=== PATIENT | female | born 1980 | race Hispanic/Latino ===

== ENCOUNTER 2018-09-12 03:12 | Inpatient (IN) | payer OTHER ==
--- NOTE | 2018-09-12 03:18 | C.PDOC ---
History Of Present Illness Patient seen and medically cleared at [facility] for depression and hearing voices, accepted in transfer for psychiatric admission under Dr. Flores. Patient has no complaints at this time, pleasant, cooperative. Denies SI or HI. Time Seen by Provider: 09/12/18 03:13 History Per: Other ([facility]) History/Exam Limitations: no limitations Onset/Duration Of Symptoms: Hrs Current Symptoms Are (Timing): Still Present Suicide/Self Injury Attempted (Context): None Modifying Factor(s): None Severity: None Pain Scale Rating Of: 0 Recent travel outside of the [place]: No Past Medical History Reviewed: Historical Data, Nursing Documentation, Vital Signs Family History: States: No Known Family Hx Review Of Systems Constitutional: Negative for: Fever, Chills Cardiovascular: Negative for: Chest Pain, Palpitations Respiratory: Negative for: Cough, Shortness of Breath Gastrointestinal: Negative for: Nausea, Vomiting Psych: Negative for: Suicidal ideation, Other (Homicidal ideation) Physical Exam - Physical Exam Appears: Non-toxic Skin: Warm, Dry Head: Normacephalic Oral Mucosa: Moist Chest: Symmetrical, No Tenderness Cardiovascular: Rhythm Regular Respiratory: No Rales, No Rhonchi, No Wheezing Gastrointestinal/Abdominal: Soft, No Tenderness Neurological/Psych: Oriented x3 Disposition Discussed With Dr.: Elisa Flores Comment: accepted the pt onhis service and took over the care at 3:17 AM Counseled Patient/Family Regarding: Studies Performed, Diagnosis - Disposition Disposition: HOSPITALIZED Disposition Time: 03:17 Condition: FAIR - POA Present On Arrival: None - Clinical Impression Clinical Impression: Schizoaffective disorder - Scribe Statement The provider has reviewed the documentation as recorded by the Scribe Ash Rodriguez All medical record entries made by the Scribe were at my direction and personally dictated by me. I have reviewed the chart and agree that the record accurately reflects my personal performance of the history, physical exam, medical decision making, and the department course for this patient. I have also personally directed, reviewed, and agree with the discharge instructions and disposition. Decision To Admit - Pt Status Changed To: Hospital Disposition Of: Inpatient - Admit Certification Admit to Inpatient:: After my assessment, the patient will require hospitalization for at least two midnights. This is because of the severity of symptoms shown, intensity of services needed, and/or the medical risk in this patient being treated as an outpatient. - InPatient: Physician Admission Certification: I certify that this patient requires 2 or more midnights of care for the following reason:: After my assessment, the patient will require hospitalization for at least two midnights. This is because of the severity of symptoms shown, intensity of services needed, and/or the medical risk in this patient being treated as an outpatient. - . Bed Request Type: Psychiatry Admitting Physician: Elisa Flores Patient Diagnosis: Schizoaffective disorder
--- NOTE | 2018-09-12 05:39 | PCM.BM ---
Treatment Plan Problems - Problems identified on initial assessmt Command/Auditory Hallucinations Date Initiated: 09/12/18 Time Initiated: 05:00 Assessment reference: NA Status: Active Comment: Auditory hallucinations stating, "Kill yourself." Suicidal Ideation Date Initiated: 09/12/18 Time Initiated: 05:00 Assessment reference: NA Status: Monitor Comment: Suicidal Ideation with plan to drink cleaning fluid Treatment assets and liabiliti Patient Assests: cooperative, ADL independent, negotiates basic needs Patient Liabilities: poor support system, dietary restrictions (Diabetic), medical problems (HTN, Hypothyroidism, DM, GERD, Asthma) - Milieu Protocol Maintain good personal hygiene: daily Encourage regular showers, daily Remind patient to perform daily oral care, every shift Assist patient to perform ADL's Conduct patient checks and document Observation sheet: Q15 minutes Maintain personal safety: every shift Educate patient to report safety concerns to staff, every shift Monitor environment for contraband/sharps Medication safety: Monitor for expected outcome, potential side effects: every shift, Assess barriers to learning: every shift, Assess readiness for medication education: every shift
[2018-09-12] MEDS: Levothyroxine 25 MCG TAB PO SCH (05:55)
[2018-09-12] MEDS ORDERED: Albuterol HFA 90 mcg/actuation (8 g) IH PRN (09:50)
--- NOTE | 2018-09-12 09:50 | PCM.PSYCH ---
Initial Psychiatric Evaluation - Initial Psychiatric Evaluation Type of Admission: Voluntary Legal Status: Capacity Chief Complaint (in patient's own words): I was hearing voices to kill myself. History of Present Illness and Precipitating Events: Patient is a 37 years old female, who is currently unemployed and lives at [facility], was transferred to from [facility], because of depressed mood, and suicidal ideation with a plan to drink cleaning fluid and auditory hallucinations telling patient to kill herself. Patient reports a long history of schizophrenia. She has history of multiple inpatient psychiatric hospitalizations. She has been to multiple group homes. Currently she is staying at the [facility]. 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 Patient appears superficially cooperative but guarded about the details. She remained a poor historian. She appears to have some learning disorder. Patient reports that she is feeling increasingly depressed since past few days. Yesterday she started hearing voices to kill herself, so she came to the hospital to get help. Patient admits to a suicide attempt by drinking cleaning fluid in May 2018. She reports depressed mood, feelings of hopelessness and helplessness and worthlessness. He also reports poor sleep and poor appetite. She reports paranoia and sometimes visual hallucinations. However she denies any irritability, agitation or any recent thoughts. She reports some anxiety but denies any panic attacks. Urine toxicology was negative. PMH: HTN, asthma, GERD, Hypothyroidism, DM, and left knee replacement surgery Current medications: Metformin 1000mg, Clozapine 100mg, Clozapine 400mg, Albuterol Inh, Aspirin 81mg, Symbicort Inh, Colace 100mg, Motrin 600mg, Synthroid 25mcg, Victoza 1.2mg, Zestril 2.5mg, Mometasone Inh, Nicotine 21mg patch, Protonix 40mg, Inderal 10mg, Seroquel 25mg, Seroquel 100mg, Zocor 10mg, Prograf 0.5mg, Trazodone 50mg. Current Medications: Active Medications Generic Name Dose Route Start Last Admin Trade Name Freq PRN Reason Stop Dose Admin Levothyroxine Sodium 25 mcg 09/12/18 06:00 09/12/18 05:55 Synthroid PO 25 mcg DAILY@0600 BALTAZAR Administration Pneumococcal Polyvalent Vaccine 0.5 ml 09/15/18 10:00 Pneumovax 23 Vaccine IM 09/15/18 10:01 .ONCE ONE Past Psychiatric History - Past Psychiatric History Previous Treatment History: Inpatient Pertinent Medical Hx (Current Medical&Sleep Prob, Allergies): Allergies Allergy/AdvReac Type Severity Reaction Status Date / Time clindamycin Allergy Verified 09/12/18 03:22 divalproex sodium Allergy Verified 09/12/18 03:22 [From Depakote] fluoxetine [From Prozac] Allergy Verified 09/12/18 03:22 Penicillins Allergy Verified 09/12/18 03:22 Albuterol Sulfate [Proair Hfa] 0.09 mg IH Q4H PRN 09/12/18 Ammonium Lactate 12% [Lac-Hydrin] 1 appl TP BID 09/12/18 Aspirin [Ecotrin] 81 mg PO DAILY 09/12/18 Budesonide/Formoterol Fumarate [Symbicort] 1 aer IH Q12H 09/12/18 Clozapine 400 mg PO HS 09/12/18 Clozapine [Fazaclo] 100 mg PO BID 09/12/18 Docusate Sodium 100 mg PO BID PRN 09/12/18 Ketoconazole 2% Cr [Nizoral] 1 applic TOP DAILY 09/12/18 Levothyroxine [Synthroid] 25 mcg PO DAILY 09/12/18 Liraglutide [Victoza] 1.2 mg SC DAILY 09/12/18 Lisinopril 2.5 mg PO DAILY 09/12/18 Loratadine [Claritin] 10 mg PO PRN PRN 09/12/18 MetFORMIN [glucOPHAGE] 1,000 mg PO BID 09/12/18 Mometasone/Formoterol [Dulera] 1 colleen IH DAILY 09/12/18 Nicotine 21 mg/24 hr [Nicoderm CQ] 1 each TD DAILY 09/12/18 Pantoprazole [Protonix] 40 mg PO DAILY 09/12/18 Propranolol [Propranolol HCl] 10 mg PO DAILY 09/12/18 Quetiapine Fumarate [Seroquel] 25 mg PO BID 09/12/18 Quetiapine Fumarate [Seroquel] 100 mg PO HS 09/12/18 Simvastatin 10 mg PO HS 09/12/18 Tacrolimus 0.5 mg PO BID 09/12/18 traZODone [trazODONE HYDROCHLORIDE] 50 mg PO DAILY 05/16/19 Review of Systems - Review of Systems All systems: reviewed and no additional remarkable complaints except - Psychiatric Psychiatric: Anxiety, Auditory Hallucinations, Irritability, Suicidal Ideation Mental Status Examination - Personal Presentation Personal Presentation: Looks stated age - Affect Affect: Constricted - Reliability in Providing Information Reliability in Providing Information: Fair - Speech Speech: Disorganized - Mood Mood: Anxious - Formal Thought Process Formal Thought Process: Hallucinations, Delusions, Paranoia, Loosening of associations - Hallucinations/Delusions Hallucinations: Auditory - Obsessions/Compulsions Obsessions: No Compulsions: No - Cognitive Functions Orientation: Person, Place, Situation, Time Sensorium: Alert Attention/Concentration: Attentive Abstract Thinking: [place] Estimate of Intelligence: Below average Judgement: Imparied, as evidence by: Poor judgement, Imparied, as evidence by: Lack of insight into illness - Risk Risk: Suicidal, Diminished functioning - Limitations Limitations: Living alone DSM 5 DX - DSM 5 DSM 5 Diagnosis: Schizoaffective disorder depressive type - Recommended/Plan of Treatment Treatment Recommendations and Plan of Treatment: Schizoaffective disorder depressive type HTN, Asthma, GERD, Hypothyroidism, DM, CBT Supportive therapy Group therapy individual therapy Trazodone for insomnia Hydroxyzine for anxiety Discontinue Seroquel Continue clozapine for psychosis Start Haldol for psychosis Continue medications for hypertension, asthma, hypothyroidism Continue medications for diabetes and continue with regular blood sugar checks - Smoking Cessation Smoking Cessation Initiated: No
[2018-09-12] MEDS ORDERED: ARO IH SCH (10:00)
[2018-09-12] MEDS ORDERED: Levothyroxine 25 MCG TAB PO SCH (10:00)
[2018-09-12] MEDS ORDERED: LIRAGLUTIDE 1.2 MG SC SCH (10:00)
[2018-09-12] MEDS ORDERED: Arformoterol 15 mcg/2 ml Inh Sol IH SCH (10:00)
[2018-09-12] MEDS ORDERED: MOMETASONE IH SCH (10:00)
[2018-09-12] MEDS ORDERED: FORMOTEROL IH SCH (10:00)
[2018-09-12] MEDS: Pantoprazole 40 mg EC Tab PO SCH (10:48)
[2018-09-12] MEDS ORDERED: Albuterol 0.083% Inhal Sol (2.5 mg/3 mL) UD IH PRN (11:30)
[2018-09-12] MEDS: (Novolin R) Insulin Human Regular 100 units/ml vial SC SCH ×3 (11:38→21:54)
[2018-09-12] MEDS: Arformoterol 15 mcg/2 ml Inh Sol IH SCH ×2 (11:51→20:34)
[2018-09-12 17:30] LABS: BASO % 0.5 % (0.0-2.0); EOS % 0.3 % (0.0-4.0); HEMOGLOBIN 12.2 g/dL (11.0-16.0); LYMPH # 2.5 K/uL (1.0-4.3); LYMPH % 38.9 % (20.0-40.0); MEAN CELL VOLUME 79.2 fL (81.0-99.0); MEAN CORPUSCULAR HEMOGLOBIN 26.2 pg (27.0-31.0); MEAN CORPUSCULAR HGB CONC 33.1 g/dL (33.0-37.0); MEAN PLATELET VOLUME 7.9 fL (7.2-11.7); MONO # 0.3 K/uL (0.0-0.8); MONO % 4.8 % (0.0-10.0); NEUT # 3.5 K/uL (1.8-7.0); NEUT % 55.5 % (50.0-75.0); NRBC % 0.1 % (0.0-2.0); RBC 4.65 Mil/uL (3.80-5.20); RED CELL DISTRIBUTION WIDTH 16.1 % (11.5-14.5); WHITE BLOOD COUNT 6.3 K/uL (4.8-10.8)
[2018-09-12] MEDS: Budesonide 0.25 mg/2 ml Inhal Susp UD INH SCH (20:34)
[2018-09-12] MEDS: Rosuvastatin Calcium 2.5 mg Tab PO SCH (21:57)
[2018-09-13] MEDS: Levothyroxine 25 MCG TAB PO SCH (06:20)
[2018-09-13] MEDS: (Novolin R) Insulin Human Regular 100 units/ml vial SC SCH ×4 (07:56→21:21)
[2018-09-13] MEDS: Budesonide 0.25 mg/2 ml Inhal Susp UD INH SCH ×2 (09:06→19:51)
[2018-09-13] MEDS: Arformoterol 15 mcg/2 ml Inh Sol IH SCH ×2 (09:07→20:09)
[2018-09-13] MEDS: Pantoprazole 40 mg EC Tab PO SCH (09:51)
[2018-09-13] MEDS: Rosuvastatin Calcium 2.5 mg Tab PO SCH (21:18)
[2018-09-14] MEDS: Levothyroxine 25 MCG TAB PO SCH (05:47)
[2018-09-14] MEDS: (Novolin R) Insulin Human Regular 100 units/ml vial SC SCH ×4 (07:51→21:52)
[2018-09-14] MEDS: Arformoterol 15 mcg/2 ml Inh Sol IH SCH ×2 (08:30→20:23)
[2018-09-14] MEDS: Budesonide 0.25 mg/2 ml Inhal Susp UD INH SCH ×2 (08:34→20:23)
[2018-09-14] MEDS: Pantoprazole 40 mg EC Tab PO SCH (09:43)
--- NOTE | 2018-09-14 12:23 | PCM.PYCHPN ---
Psychiatric Progress Note - Psychiatric Progress Note Patient seen today, length of contact: 15 min Patient Chief Complaint: I am still hearing voices Problems Identified/Issues Discussed: Patient was seen and evaluated, chart reviewed and discussed the staff. Patient still reports depressed mood, feelings of hopelessness and helplessness. He reports auditory hallucinations, visual hallucinations and paranoia. She appears somewhat disorganized and internally preoccupied. However she is taking medication but denies any side effects. She is consolable for the stabilization of the symptoms. Supportive therapy was given Medication Change: Yes Medical Record Reviewed: Yes Mental Status Examination - Cognitive Function Orientation: Person, Place, Situation, Time Memory: Intact Attention: WNL Concentration: Poor Association: Loose Fund of Knowledge: Poor - Mood Mood: Depressed, Anxious - Affect Affect: Constricted, Depressed - Speech Speech: Soft - Formal Thought Process Formal Thought Process: Hallucinations, Delusions, Paranoia, Loosening of associations - Suicidal Ideation Suicidal Ideation: No - Homicidal Ideation Homicidal Ideation: No Goal/Treatment Plan - Goal/Treatment Plan Need for Continued Stay: Remain at risks for inpatient hospitalization Progress Toward Problem(s) and Goals/Treatment Plan: Schizoaffective disorder depressive type HTN, Asthma, GERD, Hypothyroidism, DM, CBT Supportive therapy Group therapy individual therapy Trazodone for insomnia Hydroxyzine for anxiety Clozapine for psychosis Haldol for psychosis Continue medications for hypertension, asthma, hypothyroidism Continue medications for diabetes and continue with regular blood sugar checks
[2018-09-14] MEDS: Rosuvastatin Calcium 2.5 mg Tab PO SCH (21:49)
[2018-09-15] MEDS: Levothyroxine 25 MCG TAB PO SCH (06:38)
[2018-09-15] MEDS: Arformoterol 15 mcg/2 ml Inh Sol IH SCH ×2 (08:12→21:34)
[2018-09-15] MEDS: Budesonide 0.25 mg/2 ml Inhal Susp UD INH SCH ×2 (08:12→21:34)
[2018-09-15] MEDS: (Novolin R) Insulin Human Regular 100 units/ml vial SC SCH ×4 (08:12→22:05)
[2018-09-15] MEDS: Pantoprazole 40 mg EC Tab PO SCH (09:27)
[2018-09-15] MEDS ORDERED: Pneumococcal 23-Valent Vaccine IM ONE (10:00)
--- NOTE | 2018-09-15 13:26 | PCM.PYCHPN ---
Psychiatric Progress Note - Psychiatric Progress Note Patient seen today, length of contact: 15 min Patient Chief Complaint: I am still hearing voices Problems Identified/Issues Discussed: Patient was seen and evaluated, chart reviewed and discussed the staff. As per staff, patient remained isolative and withdrawn. Patient still reports depressed mood, feelings of hopelessness and helplessness. He reports auditory hallucinations, visual hallucinations and paranoia. She appears somewhat disorganized and internally preoccupied. However she is taking medication but denies any side effects. She is consolable for the stabilization of the symptoms. Supportive therapy was given Medication Change: Yes Medical Record Reviewed: Yes Mental Status Examination - Cognitive Function Orientation: Person, Place, Situation, Time Memory: Intact Attention: WNL Concentration: Poor Association: Loose Fund of Knowledge: Poor - Mood Mood: Depressed, Anxious - Affect Affect: Constricted, Depressed - Speech Speech: Soft - Formal Thought Process Formal Thought Process: Hallucinations, Delusions, Paranoia, Loosening of associations - Suicidal Ideation Suicidal Ideation: No - Homicidal Ideation Homicidal Ideation: No Goal/Treatment Plan - Goal/Treatment Plan Need for Continued Stay: Remain at risks for inpatient hospitalization Progress Toward Problem(s) and Goals/Treatment Plan: Schizoaffective disorder depressive type HTN, Asthma, GERD, Hypothyroidism, DM, CBT Supportive therapy Group therapy individual therapy Trazodone for insomnia Hydroxyzine for anxiety Clozapine for psychosis Haldol for psychosis Continue medications for hypertension, asthma, hypothyroidism Continue medications for diabetes and continue with regular blood sugar checks
[2018-09-15] MEDS: Rosuvastatin Calcium 2.5 mg Tab PO SCH (22:04)
[2018-09-16] MEDS: Levothyroxine 25 MCG TAB PO SCH (06:07)
[2018-09-16] MEDS: (Novolin R) Insulin Human Regular 100 units/ml vial SC SCH ×4 (08:13→21:10)
[2018-09-16] MEDS: Arformoterol 15 mcg/2 ml Inh Sol IH SCH (08:25)
[2018-09-16] MEDS: Budesonide 0.25 mg/2 ml Inhal Susp UD INH SCH (08:25)
[2018-09-16] MEDS: Pantoprazole 40 mg EC Tab PO SCH (09:55)
[2018-09-16] MEDS: Rosuvastatin Calcium 2.5 mg Tab PO SCH (21:01)
[2018-09-17] MEDS: Levothyroxine 25 MCG TAB PO SCH (05:33)
[2018-09-17] MEDS: Arformoterol 15 mcg/2 ml Inh Sol IH SCH ×3 (07:23→20:38)
[2018-09-17] MEDS: Budesonide 0.25 mg/2 ml Inhal Susp UD INH SCH ×3 (07:24→20:38)
[2018-09-17] MEDS: (Novolin R) Insulin Human Regular 100 units/ml vial SC SCH ×4 (07:51→21:21)
[2018-09-17] MEDS: Pantoprazole 40 mg EC Tab PO SCH (09:04)
--- NOTE | 2018-09-17 10:33 | PCM.PYCHPN ---
Psychiatric Progress Note - Psychiatric Progress Note Patient seen today, length of contact: 15 min Patient Chief Complaint: My voice are getting little better Problems Identified/Issues Discussed: Patient was seen and evaluated, chart reviewed and discussed the staff. As per staff, patient remained isolative and withdrawn. She appears more organized and less disorganized than before. Patient reports improvement in her mood and reports improvement in the feelings of hopelessness and helplessness. She reports improvement in the voices as well. However she is taking medication but denies any side effects. She is consolable for the stabilization of the symptoms. Supportive therapy was given PN: She wants to come out of the clozapine and would like to be on Haldol decannate shot. Medication Change: Yes Medical Record Reviewed: Yes Mental Status Examination - Cognitive Function Orientation: Person, Place, Situation, Time Memory: Intact Attention: WNL Concentration: Poor Association: Loose Fund of Knowledge: WNL - Mood Mood: Depressed, Anxious - Affect Affect: Constricted, Depressed - Speech Speech: Soft - Formal Thought Process Formal Thought Process: Hallucinations, Loosening of associations - Suicidal Ideation Suicidal Ideation: No - Homicidal Ideation Homicidal Ideation: No Goal/Treatment Plan - Goal/Treatment Plan Need for Continued Stay: Remain at risks for inpatient hospitalization Progress Toward Problem(s) and Goals/Treatment Plan: Schizoaffective disorder depressive type HTN, Asthma, GERD, Hypothyroidism, DM, CBT Supportive therapy Group therapy individual therapy Trazodone for insomnia Hydroxyzine for anxiety Clozapine for psychosis Haldol for psychosis Continue medications for hypertension, asthma, hypothyroidism Continue medications for diabetes and continue with regular blood sugar checks
[2018-09-17] MEDS: Rosuvastatin Calcium 2.5 mg Tab PO SCH (21:27)
[2018-09-18] MEDS: Levothyroxine 25 MCG TAB PO SCH (06:59)
[2018-09-18] MEDS: (Novolin R) Insulin Human Regular 100 units/ml vial SC SCH ×4 (08:09→21:41)
[2018-09-18] MEDS: Arformoterol 15 mcg/2 ml Inh Sol IH SCH ×2 (08:11→19:27)
[2018-09-18] MEDS: Budesonide 0.25 mg/2 ml Inhal Susp UD INH SCH ×2 (08:12→19:27)
[2018-09-18] MEDS: Pantoprazole 40 mg EC Tab PO SCH (09:53)
--- NOTE | 2018-09-18 11:14 | PCM.PYCHPN ---
Psychiatric Progress Note - Psychiatric Progress Note Patient seen today, length of contact: 15 min Patient Chief Complaint: I am feeling much better Problems Identified/Issues Discussed: Patient was seen and evaluated, chart reviewed and discussed the staff. Patient reports improvement in her mood, irritability and feelings of hopelessness and helplessness. She reports some improvement in the voices as well. She appears more organized and less internally preoccupied than before. Pt is tolerating the higher dose of haldol. Clozapine is cutting down gradually. She is taking medication but denies any side effects. She needs to stay longer for the stabilization of the symptoms. Supportive therapy was given Medication Change: Yes Medical Record Reviewed: Yes Mental Status Examination - Cognitive Function Orientation: Person, Place, Situation, Time Memory: Intact Attention: WNL Concentration: Poor Association: Loose Fund of Knowledge: Poor - Mood Mood: Depressed, Anxious - Affect Affect: Constricted, Depressed - Speech Speech: Soft - Formal Thought Process Formal Thought Process: Hallucinations, Delusions, Paranoia, Loosening of associations - Suicidal Ideation Suicidal Ideation: No - Homicidal Ideation Homicidal Ideation: No Goal/Treatment Plan - Goal/Treatment Plan Need for Continued Stay: Remain at risks for inpatient hospitalization Progress Toward Problem(s) and Goals/Treatment Plan: Schizoaffective disorder depressive type HTN, Asthma, GERD, Hypothyroidism, DM, CBT Supportive therapy Group therapy individual therapy Trazodone for insomnia Hydroxyzine for anxiety Clozapine for psychosis Haldol for psychosis Continue medications for hypertension, asthma, hypothyroidism Continue medications for diabetes and continue with regular blood sugar checks
[2018-09-18] MEDS: Rosuvastatin Calcium 2.5 mg Tab PO SCH (21:42)
[2018-09-19] MEDS: Levothyroxine 25 MCG TAB PO SCH (06:33)
[2018-09-19] MEDS: (Novolin R) Insulin Human Regular 100 units/ml vial SC SCH ×4 (07:53→21:13)
[2018-09-19] MEDS: Budesonide 0.25 mg/2 ml Inhal Susp UD INH SCH ×2 (07:56→21:29)
[2018-09-19] MEDS: Arformoterol 15 mcg/2 ml Inh Sol IH SCH ×2 (07:56→21:29)
[2018-09-19] MEDS: Pantoprazole 40 mg EC Tab PO SCH (09:50)
[2018-09-19] MEDS: Rosuvastatin Calcium 2.5 mg Tab PO SCH (21:12)
[2018-09-20] MEDS: Levothyroxine 25 MCG TAB PO SCH (05:16)
[2018-09-20] MEDS: (Novolin R) Insulin Human Regular 100 units/ml vial SC SCH ×4 (08:03→21:23)
[2018-09-20] MEDS: Arformoterol 15 mcg/2 ml Inh Sol IH SCH ×2 (08:05→20:56)
[2018-09-20] MEDS: Budesonide 0.25 mg/2 ml Inhal Susp UD INH SCH ×2 (08:06→20:56)
[2018-09-20] MEDS: Pantoprazole 40 mg EC Tab PO SCH (09:40)
--- NOTE | 2018-09-20 11:17 | PCM.PYCHPN ---
Psychiatric Progress Note - Psychiatric Progress Note Patient seen today, length of contact: 15 min Patient Chief Complaint: I am feeling much better Problems Identified/Issues Discussed: Patient was seen and evaluated, chart reviewed and discussed the staff.She repo rts some improvement in the voices as well. She appears more organized and less internally preoccupied than before. Patient reports improvement in her mood, irritability and feelings of hopelessness and helplessness. Pt is tolerating the higher dose of haldol. She is taking medication but denies any side effects. She needs to stay longer for the stabilization of the symptoms. Supportive therapy was given Medication Change: Yes (Haldol decannnoate 50 mg IM) Medical Record Reviewed: Yes Mental Status Examination - Cognitive Function Orientation: Person, Place, Situation, Time Memory: Intact Attention: WNL Concentration: Poor Association: WNL Fund of Knowledge: Poor - Mood Mood: Depressed, Anxious - Affect Affect: Constricted, Depressed - Speech Speech: Soft - Formal Thought Process Formal Thought Process: Hallucinations, Paranoia, Loosening of associations - Suicidal Ideation Suicidal Ideation: No - Homicidal Ideation Homicidal Ideation: No Goal/Treatment Plan - Goal/Treatment Plan Need for Continued Stay: Remain at risks for inpatient hospitalization Progress Toward Problem(s) and Goals/Treatment Plan: Schizoaffective disorder depressive type HTN, Asthma, GERD, Hypothyroidism, DM, CBT Supportive therapy Group therapy individual therapy Trazodone for insomnia Hydroxyzine for anxiety Clozapine for psychosis Haldol for psychosis Haldol decannoate 50 mg IM Continue medications for hypertension, asthma, hypothyroidism Continue medications for diabetes and continue with regular blood sugar checks
[2018-09-20] MEDS: Rosuvastatin Calcium 2.5 mg Tab PO SCH (21:19)
[2018-09-21] MEDS: Levothyroxine 25 MCG TAB PO SCH (06:12)
[2018-09-21] MEDS: (Novolin R) Insulin Human Regular 100 units/ml vial SC SCH ×4 (08:02→21:23)
[2018-09-21] MEDS: Budesonide 0.25 mg/2 ml Inhal Susp UD INH SCH ×2 (10:19→20:32)
[2018-09-21] MEDS: Arformoterol 15 mcg/2 ml Inh Sol IH SCH ×2 (10:19→20:32)
[2018-09-21] MEDS: Pantoprazole 40 mg EC Tab PO SCH (10:59)
--- NOTE | 2018-09-21 19:56 | PCM.PYCHPN ---
Psychiatric Progress Note - Psychiatric Progress Note Patient seen today, length of contact: 17 min Problems Identified/Issues Discussed: The pt is seen, chart reviewed, case is discussed with staff. The pt is compliant with medications and reports no side-effects. Symptoms are improving but needs more time to stabilize and to avoid relapse. She denies any perceptual disturbances including auditory or visual hallucinations Pt attends groups and activities. Support given, psycho-education provided. After care discussed. Medication Change: No Medical Record Reviewed: Yes Mental Status Examination - Cognitive Function Orientation: Person, Place, Situation, Time Memory: Intact Attention: WNL Concentration: Poor Association: Loose Fund of Knowledge: Poor - Mood Mood: Depressed, Anxious - Affect Affect: Constricted, Depressed - Speech Speech: Soft - Formal Thought Process Formal Thought Process: Hallucinations, Delusions, Paranoia, Loosening of associations - Suicidal Ideation Suicidal Ideation: No - Homicidal Ideation Homicidal Ideation: No Goal/Treatment Plan - Goal/Treatment Plan Need for Continued Stay: Remain at risks for inpatient hospitalization, Discharge may exacerbated symptoms Progress Toward Problem(s) and Goals/Treatment Plan: Continue medications Support and psychoeducation daily Attend groups and activities daily Individual therapy After care planning by WILLIAM and the team
[2018-09-21] MEDS: Rosuvastatin Calcium 2.5 mg Tab PO SCH (21:04)
[2018-09-22] MEDS: Levothyroxine 25 MCG TAB PO SCH (06:16)
[2018-09-22] MEDS: (Novolin R) Insulin Human Regular 100 units/ml vial SC SCH ×4 (08:19→21:48)
[2018-09-22] MEDS: Arformoterol 15 mcg/2 ml Inh Sol IH SCH ×2 (08:36→20:12)
[2018-09-22] MEDS: Budesonide 0.25 mg/2 ml Inhal Susp UD INH SCH ×2 (08:36→20:12)
[2018-09-22] MEDS: Pantoprazole 40 mg EC Tab PO SCH (09:46)
[2018-09-22] MEDS: Rosuvastatin Calcium 2.5 mg Tab PO SCH (21:51)
[2018-09-23] MEDS: Levothyroxine 25 MCG TAB PO SCH (06:06)
[2018-09-23 06:42] VITALS: RESP 20
[2018-09-23] MEDS: (Novolin R) Insulin Human Regular 100 units/ml vial SC SCH ×4 (08:01→22:33)
[2018-09-23] MEDS: Budesonide 0.25 mg/2 ml Inhal Susp UD INH SCH ×2 (09:00→19:51)
[2018-09-23] MEDS: Arformoterol 15 mcg/2 ml Inh Sol IH SCH ×2 (09:00→19:51)
[2018-09-23] MEDS: Pantoprazole 40 mg EC Tab PO SCH (10:30)
[2018-09-23] MEDS: Rosuvastatin Calcium 2.5 mg Tab PO SCH (21:58)
--- NOTE | 2018-09-23 22:40 | PCM.PYCHPN ---
Psychiatric Progress Note - Psychiatric Progress Note Patient seen today, length of contact: 15 min Patient Chief Complaint: "I am feeling better now" Problems Identified/Issues Discussed: The pt is seen, chart reviewed, case is discussed with staff. Support and psychoeducation given, CBT and DE used briefly The pt is improving slowly but needs more time due to severity of symptoms and relapse risk. No SEs from medications, risks discussed. After care discussed Medication Change: Yes Medical Record Reviewed: Yes Mental Status Examination - Cognitive Function Orientation: Person, Place, Situation, Time Memory: Intact Attention: WNL Concentration: Poor Association: Loose Fund of Knowledge: Poor - Mood Mood: Depressed, Anxious - Affect Affect: Constricted, Depressed - Speech Speech: Soft - Formal Thought Process Formal Thought Process: Hallucinations, Delusions, Paranoia, Loosening of associations - Suicidal Ideation Suicidal Ideation: No - Homicidal Ideation Homicidal Ideation: No Goal/Treatment Plan - Goal/Treatment Plan Need for Continued Stay: Remain at risks for inpatient hospitalization Progress Toward Problem(s) and Goals/Treatment Plan: Continue medications Support and psychoeducation daily Attend groups and activities daily Individual therapy After care planning by WILLIAM and the team
[2018-09-24] MEDS: Levothyroxine 25 MCG TAB PO SCH (06:17)
[2018-09-24 06:51] VITALS: BP 120/65; PULSE 74; TEMP 98.4; O2SAT 95
[2018-09-24] MEDS: (Novolin R) Insulin Human Regular 100 units/ml vial SC SCH ×3 (07:51→11:42)
[2018-09-24] MEDS: Arformoterol 15 mcg/2 ml Inh Sol IH SCH (08:36)
[2018-09-24] MEDS: Budesonide 0.25 mg/2 ml Inhal Susp UD INH SCH (08:36)
[2018-09-24] MEDS: Pantoprazole 40 mg EC Tab PO SCH (09:56)
--- NOTE | 2018-09-24 10:44 | PCM.PYCHDC ---
Mental Status Examination - Mental Status Examination Orientation: Person, Place, Situation, Time Memory: Intact Mood: Neutral Affect: Constricted Speech: Soft Attention: WNL Concentration: WNL Association: WNL Fund of Knowledge: WNL Formal Thought Process: No Impairment Description of patient's judgement and insight: good, fair Psychotic Thoughts and Behaviors: denies any AVH Suicidal Ideation: No Current Homicidal Ideation?: No Discharge Summary - Discharge Note Reason for Hospitalization: Patient is a 37 years old female, who is currently unemployed and lives at [facility], was transferred to [address] [place] [address], because of depressed mood, and suicidal ideation with a plan to drink cleaning fluid and auditory hallucinations telling patient to kill herself. Patient reports a long history of schizophrenia. She has history of multiple inpatient psychiatric hospitalizations. She has been to multiple group homes. Currently she is staying at the [facility]. 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 Patient appears superficially cooperative but guarded about the details. She remained a poor historian. She appears to have some learning disorder. Patient reports that she is feeling increasingly depressed since past few days. Yesterday she started hearing voices to kill herself, so she came to the hospital to get help. Patient admits to a suicide attempt by drinking cleaning fluid in May 2018. She reports depressed mood, feelings of hopelessness and helplessness and worthlessness. He also reports poor sleep and poor appetite. She reports paranoia and sometimes visual hallucinations. However she denies any irrit ability, agitation or any recent thoughts. She reports some anxiety but denies any panic attacks. Urine toxicology was negative. Laboratory Data: Abnormal Lab Results 09/23/18 09/23/18 09/23/18 11:24 16:21 21:17 POC Glucose (mg/dL) 308 H 249 H 253 H 09/24/18 07:41 POC Glucose (mg/dL) 331 H Consultations:: List each consultation separately and include: 1. Reason for request. 2. Findings. 3. Follow-up Summary of Hospital Course include:: 1. Description of specific treatment plan utilized for patients during their course of treatmen. 2. Summarize the time- course for resolution of acute symptoms and/or regressed behaviors. 3. Describe issues identified and worked on during hospitalization. 4. Describe medication utilized. 5. Describe medical problems identified and treated. 6. Reassessment of suicide risk Summary of Hospital Course: Patient is a 37 years old female, who is currently unemployed and lives at [facility] assisted, was transferred to from [facility], because of depressed mood, and suicidal ideation with a plan to drink cleaning fluid and auditory hallucinations telling patient to kill herself. Patient reports a long history of schizophrenia. She has history of multiple inpatient psychiatric hospitalizations. She has been to multiple group homes. Currently she is staying at the [facility]. 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 Patient appears superficially cooperative but guarded about the details. She remained a poor historian. She appears to have some learning disorder. Patient reports that she is feeling increasingly depressed since past few days. Yesterday she started hearing voices to kill herself, so she came to the hospital to get help. Patient admits to a suicide attempt by drinking cleaning fluid in May 2018. She reports depressed mood, feelings of hopelessness and helplessness and worthlessness. He also reports poor sleep and poor appetite. She reports paranoia and sometimes visual hallucinations. However she denies any irritability, agitation or any recent thoughts. She reports some anxiety but denies any panic attacks. Urine toxicology was negative. PMH: HTN, asthma, GERD, Hypothyroidism, DM, and left knee replacement surgery Current medications: Metformin 1000mg, Clozapine 100mg, Clozapine 400mg, Albuterol Inh, Aspirin 81mg, Symbicort Inh, Colace 100mg, Motrin 600mg, Synthroid 25mcg, Victoza 1.2mg, Zestril 2.5mg, Mometasone Inh, Nicotine 21mg patch, Protonix 40mg, Inderal 10mg, Seroquel 25mg, Seroquel 100mg, Zocor 10mg, Prograf 0.5mg, Trazodone 50mg. - Final Diagnosis (DSM 5) Condition upon Discharge: FAIR DSM 5: Schizoaffective disorder depressive type Disposition: HOME/ ROUTINE Follow-up Treatment Plan: Schizoaffective disorder depressive type HTN, Asthma, GERD, Hypothyroidism, DM, CBT Supportive therapy Group therapy individual therapy Trazodone for insomnia Hydroxyzine for anxiety Clozapine for psychosis Haldol for psychosis Haldol decannoate 50 mg IM Continue medications for hypertension, asthma, hypothyroidism Continue medications for diabetes and continue with regular blood sugar checks Prescriptions/Medication Reconciliation: Benztropine [Cogentin] 1 mg PO BID PRN #60 tab PRN Reason: blurry vision Haloperidol [Haldol] 10 mg PO TID #90 tab Sertraline [Zoloft] 100 mg PO DAILY #30 tab traZODone [Desyrel] 100 mg PO HS #30 tab
[2018-09-24] MEDS ORDERED: Bismuth Subsalicylate 262 mg Chew Tab PO ONE (11:00)
== END 2018-09-24 14:24 | disposition home or self-care (01) | DRG 885 ==
LOC: C.ER 03:12 → C.5E 03:49
PROVIDERS: ADMIT Psychiatry & Neurology Psychiatry; ATTEND Psychiatry & Neurology Psychiatry
PROC: GZ56ZZZ Individual Psychotherapy, Supportive (ICD-10-PCS; principal; 2018-09-12)
DX: F25.1 Schizoaffective disorder, depressive type (principal); E03.9 Hypothyroidism, unspecified; E11.9 Type 2 diabetes mellitus without complications; F41.9 Anxiety disorder, unspecified; F81.9 Developmental disorder of scholastic skills, unspecified; G47.00 Insomnia, unspecified; I10 Essential (primary) hypertension; J45.909 Unspecified asthma, uncomplicated; Z96.652 Presence of left artificial knee joint; K21.9 Gastro-esophageal reflux disease without esophagitis